=== PATIENT | female | born 1960 | race Caucasian/White ===

== ENCOUNTER 2017-03-02 17:34 | Emergency (ER) | payer SELFPAY ==
[~2017-03-02] VITALS: Ht 162.6 cm; Wt 80.0 kg
[~2017-03-02 17:34] MED LIST: SYN150 PO
[2017-03-02 17:39] VITALS: BP 154/87
== END 2017-03-03 00:16 | disposition left against medical advice (07) ==
LOC: ER 17:41
DX: M54.9 Dorsalgia, unspecified (principal); Z53.21 Procedure and treatment not carried out due to patient leaving prior to being seen by health care provider